=== PATIENT | female | born 1985 | race Caucasian/White ===

== ENCOUNTER → 2020-08-29 | Outpatient (CLI) | payer BC ==
[~2020-08-29] MED LIST: BACTROBAN OINT22 GM EXT; IBUPROFEN600 MG PO
== END ==
LOC: EXRD 08:00
DX: E04.9 Nontoxic goiter, unspecified (principal)
CPT/HCPCS: 76536

== ENCOUNTER → 2021-10-15 | Outpatient (CLI) | payer BC | LOC: EXRD 15:05 | DX: E04.2 Nontoxic multinodular goiter (principal) | CPT/HCPCS: 76536 ==